=== PATIENT | female | born 1995 | race Caucasian/White ===

== ENCOUNTER 2020-02-25 21:43 | Emergency (ER) | payer MEDICAID, SELFPAY ==
[2020-02-25 21:52] VITALS: BP 135/83; PULSE 110; RESP 15; TEMP 36.7; O2SAT 95; BMI 25.8
[2020-02-25 22:13] LABS: Appearance,Urine CLEAR (Clear); Bilirubin,Urine Negative (Negative); Blood, Urine Negative (Negative); Color,Urine YELLOW (Yellow); Glucose,Urine (UA) Negative (Negative); Ketones,Urine Negative (Negative); Leukocyte Esterase,Urine Negative (Negative); Microscopic, Urine URINE MICROSCOPIC (MICROSCOPIC); Nitrate,Urine Negative (Negative); Protein,Urine Negative (Negative); Urobilinogen,Urine 0.2 EU/dl (0.2)
[2020-02-25 22:14] LABS: Basophils # 0.1 K/mm3 (0-0.2); Basophils % 0.4 % (0.1-2.0); Eosinophils # 0.3 K/mm3 (0.0-0.4); Eosinophils % 2.3 % (0.1-12.0); Hematocrit 39.3 % (37.0-47.0); Hemoglobin 13.8 g/dL (12.2-16.2); Lymphocytes # 3.5 K/mm3 (0.7-4.5); Lymphocytes % 30.6 % (10-50); Mean Corpuscular HGB Conc 35.2 g/dL (31.8-35.4); Mean Corpuscular Hemoglobin 30.2 pg (27.0-31.2); Mean Corpuscular Volume 85.7 fl (81-99); Mean Platelet Volume 8.3 fl (7.4-10.4); Monocytes # 0.8 K/mm3 (0.1-1.0); Monocytes % 6.5 % (1.7-9.3); Neutrophils # 6.9 K/mm3 (1.8-7.8); Neutrophils % 60.2 % (37.0-80.0); Platelet Count 268 K/mm3 (142-424); Red Blood Count 4.59 M/mm3 (4.20-5.40); Red Cell Distribution Width 13.1 % (11.5-17.5); White Blood Count 11.5 K/mm3 (4.8-10.8)
[2020-02-25 22:16] LABS: Urine Pregnancy, HCG Qual. Positive (Negative)
[2020-02-25 22:19] LABS: Bacteria,Urine Trace /lpf; WBC,Urine Occasional #/hpf (0-3)
[2020-02-25 22:21] LABS: Chloride 102 mmol/L (98-107); Potassium 3.4 mmoL/L (3.5-5.1); Sodium 137 mmol/L (136-145)
[2020-02-25 22:24] LABS: Alanine Aminotransferase 13 U/L (12-78); Albumin Level 4.3 g/dl (3.5-5.0); Albumin/Globulin Ratio 1.4 (1.1-1.8); Alkaline Phosphatase 68 U/L (38-126); Anion Gap 12.4 mEq/L (5-15); Aspartate Amino Transferase 33 U/L (14-36); Bilirubin,Total 0.4 mg/dl (0.2-1.3); Blood Urea Nitrogen 7 mg/dl (7-17); Calcium 9.1 mg/dl (8.4-10.2); Carbon Dioxide 26 mmol/L (22.0-30.0); Creatinine Clearance Estimated 205 mL/min (50-200); Estimated Glomerular Filt Rate 152 ml/min (>60); GFR (African American) 183 ML/MIN (>60); Globulin 3.1 g/dL (1.3-3.2); Glucose 91 mg/dl (74-100); Total Protein,Serum 7.4 g/dl (6.3-8.2)
--- NOTE | 2020-02-25 22:30 | US_ITS ---
PROCEDURE: US OB TRANSVAGINAL CLINICAL INDICATION: R/O ECTOPIC Pelvic pain, early COMPARISON: No exams were available for comparison FINDINGS: There is an intrauterine gestational sac noted which measures 6.5 x 3 mm. Yolk sac is also present which measures 1.3 mm. A pole is not yet identified. No heart tones apparent. Unremarkable adnexa. No cul-de-sac fluid. IMPRESSION: There is an intrauterine gestational sac with yolk sac but no obvious pole or heart tones which may be too early. Recommend follow-up exam in 2 weeks along with correlation with beta HCG. Dictated by: Nolan Patel MD 02/26/2020 08:57 Electronically signed by Nolan Patel MD in [place] 02/26/2020 08:57
[2020-02-25 22:41] LABS: HCG,Quantitative 3427 mIU/ml (0-5.42)
[2020-02-25 22:51] VITALS: BP 122/71; PULSE 90; O2SAT 98
--- NOTE | 2020-02-25 23:26 | PC.NURSE ---
back to room received ultrasound report to
[2020-02-25 23:44] VITALS: BP 131/74; PULSE 91; O2SAT 97
[2020-02-26 00:38] VITALS: BP 119/74; PULSE 88; RESP 15; O2SAT 97
--- NOTE | 2020-02-26 00:59 | [facility].EDGENADL ---
ED Disposition Clinical Impression: Flank pain Disposition: Home, Self-Care Condition on Discharge: Good Instructions: DI for Low Back Pain Additional Instructions: Please be assured that you do not have an ectopic . Please follow up with your PCP Referrals: Yefri Squires [Primary Care Provider] - Time of Disposition: 01:06 - Critical Care Critical Care Time: No Attestation: On 02/25/20, the high probability of a clinically significant, sudden or life threatening deterioration of the following system(s) required my full and direct attention, intervention and personal management. The time I documented below is in addition to time spent performing reported procedures but includes the following listed in this critical care notation. Medical Decision Making - Medical Records Medical records reviewed: Yes: I reviewed the patient's medical records. MR Comment: Patient reports she had blood work done to confirm a postive . Patient is est. to be about 5 wks and having a persistent lower back pain. Patient reports she has a hx of endometriosis and ovarian cyst so she was sent here by her OB to be evaluated for an ectopic . Ultrasound of the abdomen was done and it shows intrauterine . Assurance has been given to the patient that this is not an ectopic ; to follow-up with her regular doctor for other abdominal causes of pain such as urinary tract infection - Ravindra Inquiry Pt receiving controlled substance: No Ravindra was queried for this patient: No Vital Signs: 02/25/20 21:52 02/25/20 22:51 02/25/20 23:44 Temperature 98.1 F Temperature Source Oral Pulse Rate [Right Brachial] 110 H 90 91 H Respiratory Rate 15 Blood Pressure [Right Arm] 135/83 122/71 131/74 Blood Pressure Mean [Right Arm] 100 88 93 Blood Pressure Source [Right Arm] Automatic Cuff Automatic Cuff Automatic Cuff Blood Pressure Position [Right Arm] Sitting Sitting Sitting 02 Sat by Pulse Oximetry 95 98 97 Oxygen Delivery Method Room Air Room Air 02/26/20 00:38 Temperature Temperature Source Pulse Rate [Right Brachial] 88 Respiratory Rate 15 Blood Pressure [Right Arm] 119/74 Blood Pressure Mean [Right Arm] 89 Blood Pressure Source [Right Arm] Automatic Cuff Blood Pressure Position [Right Arm] Sitting 02 Sat by Pulse Oximetry 97 Oxygen Delivery Method - Lab Data Lab results reviewed: Yes: I reviewed the patient's lab results. Lab Results 02/25/20 21:54: Urine Color Yellow, Urine Appearance Clear, Urine pH 6.0, Ur Specific [place] 1.010, Urine Protein Negative, Urine Glucose (UA) Negative, Urine Ketones Negative, Urine Blood Negative, Urine Nitrate Negative, Urine Bilirubin Negative, Urine Urobilinogen 0.2, Ur Leukocyte Esterase Negative, Urine WBC Occasional, Ur Squamous Epith Cells 3-5, Urine Bacteria Trace 02/25/20 22:10: WBC 11.5 H, RBC 4.59, Hgb 13.8, Hct 39.3, MCV 85.7, MCH 30.2, MCHC 35.2, RDW 13.1, Plt Count 268, MPV 8.3, Neut % (Auto) 60.2, Lymph % (Auto) 30.6, [place] % (Auto) 6.5, Eos % (Auto) 2.3, Baso % (Auto) 0.4, Neut # (Auto) 6.9, Lymph # (Auto) 3.5, Pershing # (Auto) 0.8, Eos # (Auto) 0.3, Baso # (Auto) 0.1 02/25/20 22:10: Urine HCG, Qual Positive 02/25/20 22:10: Sodium 137, Potassium 3.4 L, Chloride 102, Carbon Dioxide 26, Anion Gap 12.4, BUN 7, Creatinine 0.50 L, Estimated Creat Clear 205, Estimated GFR 152, Est GFR ( Amer) 183, Glucose 91, Calcium 9.1, Total Bilirubin 0.4, AST 33, ALT 13, Alkaline Phosphatase 68, Total Protein 7.4, Albumin 4.3, Globulin 3.1, Albumin/Globulin Ratio 1.4, HCG, Quant [id number] H Result diagrams: 02/25/20 22:10 02/25/20 22:10 Orders (Tests/Meds): ORDERS Category Date Time Status US OB transvaginal Stat Ultrasound 02/25/20 22:30 Taken General Adult HPI - General Chief complaint: Back Pain/Injury Stated complaint: Lower back pain, left side pain, Time Seen by Provider: 02/26/20 00:50 Mode of Arrival: Ambulatory Milly
[2020-02-26 01:04] VITALS: BP 132/88; PULSE 68; RESP 19; TEMP 36.6; O2SAT 99
== END 2020-02-26 01:09 | disposition home or self-care (01) ==
PROVIDERS: Emergency Provider Emergency Medicine; PCP Pediatrics
DX: M54.5 Low back pain (principal); Z32.01 Encounter for pregnancy test, result positive; Z88.0 Allergy status to penicillin; Z88.2 Allergy status to sulfonamides
CPT/HCPCS: 76817; 80053; 81001; 81025; 84702; 85025; 99283